=== PATIENT | male | born 1950 | race Caucasian/White ===

== ENCOUNTER 2018-11-10 16:21 | Inpatient (IN) | payer OTHER ==
[~2018-11-10] VITALS: Ht 172.7 cm; Wt 77.1 kg
[2018-11-10 16:22] VITALS: BP 142/79
[2018-11-10] MEDS ORDERED: AMITIZA 24 MCG24 MC1 PO (19:33)
[2018-11-10] MEDS ORDERED: LOPRESSOR50 PO (19:33)
[2018-11-10] MEDS ORDERED: VASCEPA1 GM PO (19:34)
[2018-11-10] MEDS ORDERED: ASPIR 8181 MG PO (19:34)
[2018-11-10] MEDS ORDERED: FLOMAX0.4 MG PO (19:34)
[2018-11-10] MEDS ORDERED: ZOCOR20 MG PO (19:34)
[2018-11-10 20:15] VITALS: BP 148/108
[2018-11-10 20:45] VITALS: BP 148/78
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
[2018-11-10 23:40] VITALS: BP 131/77
[2018-11-11 03:22] VITALS: BP 127/69
[2018-11-11 05:25] LABS: CALCIUM 9.1 mg/dL (8.5-10.1); POTASSIUM 3.9 mmol/L (3.5-5.1)
[2018-11-11 07:20] VITALS: BP 113/72
--- NOTE | 2018-11-11 12:45 | NUR ---
Assumed care pf pt at 0700. Pt alert and oriented x4. C-collar in place. SBA to the toilet. Awaiting on MRI. Denies numbness or tingling on extremities at this time. Instructed to let staff know if tingling present. Family at bedside. Meds that are not carried by hospital pharmacy, brought from home by pt's , sent down to pharmacy for verification. Neurosurgery consulted and saw pt at bedside. Call light within reach. Fall precautions in place. Will continue to monitor.
[2018-11-11 19:15] VITALS: BP 114/62
[2018-11-12 02:54] VITALS: BP 154/81
[2018-11-12 02:55] VITALS: BP 154/81
--- NOTE | 2018-11-12 06:25 | NUR ---
ASSUMED CARE AT 1900, ASSESSMENT COMPLETED. PT REPORTS LOW LEVEL OF PAIN WHILE RESTING IN BED BUT STATES HIS PAIN LEVEL SPIKES WITH ANY MOVEMENT/GETTING OUT OF BED; HE STATES THE HYDROCODONE DOESN'T DO MUCH FOR HIS PAIN AND HE'D RATHER NOT TAKE IT IF IT ISN'T WORKING. OBTAINED ORDER FOR IV FENTANYL AND OFFERED IT TO PT MULTIPLE TIMES, ESPECIALLY IF IT COULD BE TIMED PRIOR TO GETTING UP AND MOVING, BUT PT REFUSED. DENIED NAUSEA OR SOB. UP TO TOILET WITH STANDBY ASSIST. C-COLLAR IN PLACE. NO OTHER CONCERNS, WILL CONTINUE TO MONITOR.
[2018-11-12 08:06] VITALS: BP 141/86
--- NOTE | 2018-11-12 11:52 | NUR ---
Assumed care of pt at 0700. Pt a&ox4. States hydrocodone is not helping with pain. Percocet ordered. Neck collar in place. Neurosurgery saw pt in room. States he can go home today and follow-up with neuro 1 week from tuesday. [facility] Dr. dyson and updated. Waiting on discharge orders.
[2018-11-12] MEDS ORDERED: CYCLOBENZAPRINE5 MG PO (14:52)
[2018-11-12] MEDS ORDERED: PERCOCET 7.5-31 EACH PO (14:53)
[2018-11-12 15:30] VITALS: BP 141/86
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
== END 2018-11-12 16:10 | disposition home or self-care (01) | DRG 552 ==
LOC: ER 16:21 → EROBS 19:00 → 4E 20:38
PROVIDERS: Nurse Practitioner Family; ADMIT Hospitalist
DX: S12.300A Unspecified displaced fracture of fourth cervical vertebra, initial encounter for closed fracture (principal); I42.2 Other hypertrophic cardiomyopathy; M48.02 Spinal stenosis, cervical region; E78.5 Hyperlipidemia, unspecified; S12.400A Unspecified displaced fracture of fifth cervical vertebra, initial encounter for closed fracture; I10 Essential (primary) hypertension; N40.0 Benign prostatic hyperplasia without lower urinary tract symptoms; V89.2XXA Person injured in unspecified motor-vehicle accident, traffic, initial encounter; Y93.89 Activity, other specified; Z79.82 Long term (current) use of aspirin; Y92.89 Other specified places as the place of occurrence of the external cause; Y99.8 Other external cause status
CPT/HCPCS: 10084

== ENCOUNTER → 2018-11-20 | Outpatient (CLI) | payer OTHER ==
[~2018-11-20] MED LIST: AMITIZA 24 MCG24 MC1 PO; ASPIR 8181 MG PO; CYCLOBENZAPRINE5 MG PO; FLOMAX0.4 MG PO; LOPRESSOR50 PO; PERCOCET 7.5-31 EACH PO; VASCEPA1 GM PO; ZOCOR20 MG PO
== END ==
LOC: RAD 10:51
DX: S12.9XXA Fracture of neck, unspecified, initial encounter (principal); X58.XXXA Exposure to other specified factors, initial encounter; Y93.89 Activity, other specified; Y92.89 Other specified places as the place of occurrence of the external cause; Y99.8 Other external cause status

== ENCOUNTER → 2018-12-05 | Outpatient (CLI) | payer OTHER | LOC: RAD 10:16 | DX: S12.200D Unspecified displaced fracture of third cervical vertebra, subsequent encounter for fracture with routine healing (principal); S12.300D Unspecified displaced fracture of fourth cervical vertebra, subsequent encounter for fracture with routine healing; M43.22 Fusion of spine, cervical region; Z98.1 Arthrodesis status; X58.XXXD Exposure to other specified factors, subsequent encounter ==

== ENCOUNTER → 2019-01-01 | Outpatient (CLI) | payer OTHER | LOC: CAT 10:12 | DX: M47.812 Spondylosis without myelopathy or radiculopathy, cervical region (principal); M43.22 Fusion of spine, cervical region; M48.02 Spinal stenosis, cervical region; M25.78 Osteophyte, vertebrae; M12.88 Other specific arthropathies, not elsewhere classified, other specified site ==

== ENCOUNTER → 2019-02-12 | Outpatient (CLI) | payer OTHER | LOC: RAD 09:19 | DX: M43.22 Fusion of spine, cervical region (principal); M47.812 Spondylosis without myelopathy or radiculopathy, cervical region; M50.83 Other cervical disc disorders, cervicothoracic region ==

== ENCOUNTER → 2019-05-14 | Outpatient (CLI) | payer OTHER | LOC: RAD 08:56 | DX: M43.22 Fusion of spine, cervical region (principal); M50.33 Other cervical disc degeneration, cervicothoracic region ==